=== PATIENT | female | born 1965 | race Hispanic/Latino ===

== ENCOUNTER 2017-06-17 01:38 | Emergency (ER) | payer MEDICAID ==
[2017-06-17 03:19] LABS: BASOPHILS % (AUTO) 1.2 % (0.0-5.0); EOSINOPHILS % (AUTO) 1.4 % (0.0-8.0); HEMATOCRIT 32.1 % (36-48); LYMPHOCYTES % (AUTO) 30.8 % (21.0-51.0); MEAN CORPUSCULAR HEMOGLOBIN 27.7 pg (27.0-33.0); MEAN CORPUSCULAR HGB CONC 33.4 g/dL (32.0-36.0); MEAN CORPUSCULAR VOLUME 82.9 fL (79-99); MONOCYTES % (AUTO) 7.7 % (3.0-13.0); NEUTROPHILS % (AUTO) 58.9 % (40.0-77.0); PLATELET COUNT (AUTO) 340 K/uL (130-400); RED BLOOD CELL COUNT(AUTO) 3.87 MIL/uL (4.00-5.50); RED CELL DISTRIBUTION WIDTH 13.1 % (11.0-15.5); WHITE BLOOD COUNT (AUTO) 9.3 K/uL (4.8-10.8)
[2017-06-17 03:20] LABS: CREATININE 1.3 mg/dL (0.5-1.5); POTASSIUM 3.9 mmol/L (3.5-5.1)
[2017-06-17 03:25] LABS: ALBUMIN 3.5 g/dL (3.5-5.0); BILIRUBIN,TOTAL 0.2 mg/dL (0.2-1.0); TOTAL PROTEIN, SERUM 7.3 g/dL (6.0-8.3)
[2017-06-17 03:27] LABS: APPEARANCE,URINE Clear (CLEAR); BILIRUBIN,URINE Negative (NEGATIVE); COLOR,URINE Yellow (YELLOW); GLUCOSE, URINE (UA) Negative (NEGATIVE); KETONES,URINE Negative (NEGATIVE); LEUKOCYTE ESTERASE ,URINE Negative (NEGATIVE); NITRATE,URINE Negative (NEGATIVE); OCCULT BLOOD,URINE Negative (NEGATIVE); PH,URINE 5.5 (5.0-8.0); PROTEIN,URINE Negative (NEGATIVE); UROBILINOGEN,URINE 0.2 mg/dL (0.2-1.0)
[2017-06-17] MEDS ORDERED: LIDOCAINE HCL 2% VISCOUS 15 ML UDCUP ONE (05:02)
[2017-06-17] MEDS ORDERED: MAGNESIUM HYDROXIDE 30 ML/UDCUP ONE (05:02)
[2017-06-17] MEDS ORDERED: ONDANSETRON HCL 4 MG/2 ML VIAL ONE (05:03)
[2017-06-17] MEDS ORDERED: METHYLPREDNISOLONE SOD SUCC 125MG/2ML VIAL ONE (05:03)
[2017-06-17] MEDS ORDERED: MORPHINE SULFATE 8 MG/ML VIAL ONE (05:05)
== END 2017-06-17 07:20 | disposition home or self-care (01) ==
LOC: EDH 01:38
DX: M32.9 Systemic lupus erythematosus, unspecified (principal); I10 Essential (primary) hypertension; E11.9 Type 2 diabetes mellitus without complications; M19.90 Unspecified osteoarthritis, unspecified site
CPT/HCPCS: 36415; 80053; 81003; 85025; 96374; 96375; 99284; J2270; J2405; J2930

== ENCOUNTER 2017-06-24 14:11 | Emergency (ER) | payer MEDICAID ==
[2017-06-24 14:34] LABS: APPEARANCE,URINE Clear (CLEAR); BILIRUBIN,URINE Negative (NEGATIVE); COLOR,URINE Yellow (YELLOW); GLUCOSE, URINE (UA) Negative (NEGATIVE); KETONES,URINE Negative (NEGATIVE); LEUKOCYTE ESTERASE ,URINE Negative (NEGATIVE); NITRATE,URINE Negative (NEGATIVE); OCCULT BLOOD,URINE Negative (NEGATIVE); PROTEIN,URINE Negative (NEGATIVE); UROBILINOGEN,URINE 0.2 mg/dL (0.2-1.0)
[2017-06-24] MEDS ORDERED: LIDOCAINE HCL 2% VISCOUS 15 ML UDCUP ONE (14:42)
[2017-06-24] MEDS ORDERED: MAG HYDROX/AL HYDROX/SIMETH ES 30 ML SUSP UDCUP ONE (14:42)
[2017-06-24] MEDS ORDERED: FAMOTIDINE/PF 20 MG/2 ML VIAL IV ONE (14:43)
[2017-06-24] MEDS ORDERED: ONDANSETRON HCL 4 MG/2 ML VIAL ONE (14:43)
[2017-06-24 14:51] LABS: BASOPHILS % (AUTO) 0.8 % (0.0-5.0); EOSINOPHILS % (AUTO) 1.8 % (0.0-8.0); LYMPHOCYTES % (AUTO) 29.6 % (21.0-51.0); MEAN CORPUSCULAR HEMOGLOBIN 27.5 pg (27.0-33.0); MEAN CORPUSCULAR HGB CONC 33.2 g/dL (32.0-36.0); MEAN CORPUSCULAR VOLUME 82.7 fL (79-99); MONOCYTES % (AUTO) 6.4 % (3.0-13.0); NEUTROPHILS % (AUTO) 61.4 % (40.0-77.0); PLATELET COUNT (AUTO) 433 K/uL (130-400); RED CELL DISTRIBUTION WIDTH 13.1 % (11.0-15.5); WHITE BLOOD COUNT (AUTO) 10.8 K/uL (4.8-10.8)
[2017-06-24 15:05] LABS: CREATININE 1.1 mg/dL (0.5-1.5); POTASSIUM 3.9 mmol/L (3.5-5.1)
[2017-06-24 15:18] LABS: ALBUMIN 3.9 g/dL (3.5-5.0); BILIRUBIN,TOTAL 0.2 mg/dL (0.2-1.0); CREATINE KINASE MB 2.6 ng/mL (0.5-3.6); TOTAL PROTEIN, SERUM 8.4 g/dL (6.0-8.3)
[2017-06-24] MEDS ORDERED: MORPHINE SULFATE 4 MG/1ML SYG ONE (15:42)
[2017-06-24] MEDS ORDERED: MAGNESIUM CITRATE 296 ML SOLUTION ONE (17:14)
== END 2017-06-24 17:22 | disposition home or self-care (01) ==
LOC: EDH 14:11
DX: R10.12 Left upper quadrant pain (principal); K59.00 Constipation, unspecified; E11.9 Type 2 diabetes mellitus without complications; I10 Essential (primary) hypertension; M19.90 Unspecified osteoarthritis, unspecified site; M79.7 Fibromyalgia; M32.9 Systemic lupus erythematosus, unspecified; Z90.49 Acquired absence of other specified parts of digestive tract; Z90.710 Acquired absence of both cervix and uterus; Z98.890 Other specified postprocedural states
CPT/HCPCS: 36415; 74176; 80053; 81003; 82150; 82553; 83690; 84484; 85025; 93005; 96374; 96375; 99285; J2270; J2405; J3490

== ENCOUNTER 2018-04-16 12:21 | Emergency (ER) | payer MEDICAID ==
[2018-04-16 12:50] LABS: APPEARANCE,URINE Clear (CLEAR); BILIRUBIN,URINE Negative (NEGATIVE); COLOR,URINE Yellow (YELLOW); GLUCOSE, URINE (UA) Negative (NEGATIVE); KETONES,URINE Trace mg/dL (NEGATIVE); LEUKOCYTE ESTERASE ,URINE Small (NEGATIVE); NITRATE,URINE Negative (NEGATIVE); OCCULT BLOOD,URINE Moderate (NEGATIVE); PH,URINE 5.5 (5.0-8.0); PROTEIN,URINE Negative (NEGATIVE); UROBILINOGEN,URINE 0.2 mg/dL (0.2-1.0)
[2018-04-16 13:05] LABS: BACTERIA,URINE Rare /HPF (None Seen); SQUAMOUS EPITHELIAL CELL,UR Rare /HPF (0-2); WBC,URINE 0-1 /HPF (0-1)
[2018-04-16] MEDS ORDERED: ONDANSETRON HCL 4 MG/2 ML VIAL ONE (14:28)
[2018-04-16 14:40] LABS: BASOPHILS % (AUTO) 0.7 % (0.0-5.0); EOSINOPHILS % (AUTO) 1.6 % (0.0-8.0); HEMATOCRIT 31.2 % (36-48); LYMPHOCYTES % (AUTO) 29.4 % (21.0-51.0); MEAN CORPUSCULAR HEMOGLOBIN 28.2 pg (27.0-33.0); MEAN CORPUSCULAR HGB CONC 32.9 g/dL (32.0-36.0); MEAN CORPUSCULAR VOLUME 85.7 fL (79-99); NEUTROPHILS % (AUTO) 61.3 % (40.0-77.0); PLATELET COUNT (AUTO) 405 K/uL (130-400); RED BLOOD CELL COUNT(AUTO) 3.64 MIL/uL (4.00-5.50); RED CELL DISTRIBUTION WIDTH 13.3 % (11.0-15.5); WHITE BLOOD COUNT (AUTO) 8.1 K/uL (4.8-10.8)
[2018-04-16] MEDS ORDERED: MORPHINE SULFATE 4 MG/1ML SYG ONE (14:49)
[2018-04-16 14:56] LABS: CREATININE 1.3 mg/dL (0.5-1.5); POTASSIUM 4.4 mmol/L (3.5-5.1)
[2018-04-16 15:01] LABS: ALBUMIN 3.6 g/dL (3.5-5.0); BILIRUBIN,DIRECT 0.1 mg/dL (0.0-0.3); BILIRUBIN,TOTAL 0.2 mg/dL (0.2-1.0); TOTAL PROTEIN, SERUM 7.7 g/dL (6.0-8.3)
[2018-04-16] MEDS ORDERED: METHYLPREDNISOLONE SOD SUCC 125MG/2ML VIAL ONE (15:15)
== END 2018-04-16 15:55 | disposition home or self-care (01) ==
LOC: EDH 12:21
DX: M32.9 Systemic lupus erythematosus, unspecified (principal); B34.9 Viral infection, unspecified; I10 Essential (primary) hypertension; E11.9 Type 2 diabetes mellitus without complications; Z90.49 Acquired absence of other specified parts of digestive tract; Z90.710 Acquired absence of both cervix and uterus
CPT/HCPCS: 36415; 80048; 80076; 81001; 85025; 87804 ×2; 96374; 96375; 99283; J2270; J2405; J2930

== ENCOUNTER 2018-08-31 00:27 | Emergency (ER) | payer MEDICAID ==
[2018-08-31 00:52] LABS: APPEARANCE,URINE Clear (CLEAR); BILIRUBIN,URINE Negative (NEGATIVE); COLOR,URINE Yellow (YELLOW); GLUCOSE, URINE (UA) Negative (NEGATIVE); KETONES,URINE Negative (NEGATIVE); LEUKOCYTE ESTERASE ,URINE Negative (NEGATIVE); NITRATE,URINE Negative (NEGATIVE); OCCULT BLOOD,URINE Negative (NEGATIVE); PH,URINE 5.5 (5.0-8.0); PROTEIN,URINE Negative (NEGATIVE); UROBILINOGEN,URINE 0.2 mg/dL (0.2-1.0)
[2018-08-31 01:10] LABS: BASOPHILS % (AUTO) 0.8 % (0.0-5.0); EOSINOPHILS % (AUTO) 1.7 % (0.0-8.0); HEMATOCRIT 34.1 % (36-48); LYMPHOCYTES % (AUTO) 28.4 % (21.0-51.0); MEAN CORPUSCULAR HEMOGLOBIN 27.4 pg (27.0-33.0); MEAN CORPUSCULAR HGB CONC 32.9 g/dL (32.0-36.0); MEAN CORPUSCULAR VOLUME 83.2 fL (79-99); MONOCYTES % (AUTO) 7.9 % (3.0-13.0); NEUTROPHILS % (AUTO) 61.2 % (40.0-77.0); PLATELET COUNT (AUTO) 379 K/uL (130-400); RED CELL DISTRIBUTION WIDTH 13.6 % (11.0-15.5); WHITE BLOOD COUNT (AUTO) 9.6 K/uL (4.8-10.8)
[2018-08-31 01:24] LABS: CREATININE 1.1 mg/dL (0.5-1.5); POTASSIUM 4.8 mmol/L (3.5-5.1)
[2018-08-31] MEDS ORDERED: LIDOCAINE HCL 2% VISCOUS 15 ML UDCUP ONE (01:26)
[2018-08-31] MEDS ORDERED: ONDANSETRON HCL 4 MG/2 ML VIAL ONE (01:26)
[2018-08-31] MEDS ORDERED: MAGNESIUM HYDROXIDE 30 ML/UDCUP ONE (01:26)
[2018-08-31 01:28] LABS: ALBUMIN 3.6 g/dL (3.5-5.0); BILIRUBIN,TOTAL 0.3 mg/dL (0.2-1.0); TOTAL PROTEIN, SERUM 7.7 g/dL (6.0-8.3)
[2018-08-31] MEDS ORDERED: MORPHINE SULFATE 2 MG/ML 1ML SYG ONE (02:24)
[2018-08-31 02:57] LABS: OCCULT BLOOD STOOL SINGLE ONLY NEGATIVE (NEGATIVE)
[2018-08-31] MEDS ORDERED: SUCRALFATE 1 GM TABLET ONE (04:31)
[2018-08-31] MEDS ORDERED: FAMOTIDINE/PF 20 MG/2 ML VIAL IV ONE (04:31)
[2018-08-31] MEDS ORDERED: MORPHINE SULFATE 4 MG/1ML SYG ONE (05:25)
== END 2018-08-31 07:14 | disposition home or self-care (01) ==
LOC: EDH 00:27
DX: A09 Infectious gastroenteritis and colitis, unspecified (principal); E11.9 Type 2 diabetes mellitus without complications; I10 Essential (primary) hypertension; L93.0 Discoid lupus erythematosus; Z90.49 Acquired absence of other specified parts of digestive tract; Z90.710 Acquired absence of both cervix and uterus
CPT/HCPCS: 36415; 80053; 81003; 82270; 83630; 83690 ×2; 84484; 85025; 86677; 87046; 87324; 87804 ×2; 93005; 96361; 96372; 96374; 96375; 96376; 99285; J2270; J2405; J3490

== ENCOUNTER 2019-05-17 10:23 | Emergency (ER) | payer MEDICAID ==
[~2019-05-17 10:23] MED LIST: AMIT25TA9 PO; DULO20CA18 PO; HYDR-4060 PO; LORA10TA7 PO; LOSA1TAB54 PO; METF-446 PO; PREG100C PO; ZOLP10TA6 PO
[2019-05-17 10:55] LABS: BASOPHILS % (AUTO) 0.6 % (0.0-5.0); EOSINOPHILS % (AUTO) 0.7 % (0.0-8.0); LYMPHOCYTES % (AUTO) 29.7 % (21.0-51.0); MEAN CORPUSCULAR HEMOGLOBIN 27.1 pg (27.0-33.0); MEAN CORPUSCULAR HGB CONC 31.6 g/dL (32.0-36.0); MEAN CORPUSCULAR VOLUME 85.8 fL (79-99); MONOCYTES % (AUTO) 6.7 % (3.0-13.0); NEUTROPHILS % (AUTO) 61.4 % (40.0-77.0); PLATELET COUNT (AUTO) 381 K/uL (130-400); RED BLOOD CELL COUNT(AUTO) 3.73 MIL/uL (4.00-5.50); RED CELL DISTRIBUTION WIDTH 14.1 % (11.0-15.5); WHITE BLOOD COUNT (AUTO) 9.1 K/uL (4.8-10.8)
[2019-05-17 11:02] LABS: CREATININE 1.2 mg/dL (0.5-1.5); POTASSIUM 3.8 mmol/L (3.5-5.1)
[2019-05-17 11:08] LABS: ALBUMIN 3.3 g/dL (3.5-5.0); BILIRUBIN,TOTAL 0.1 mg/dL (0.2-1.0); TOTAL PROTEIN, SERUM 7.5 g/dL (6.0-8.3)
[2019-05-17] MEDS ORDERED: DEXAMETHASONE SOD PHOSPHATE 10MG/ML 1ML VIAL ONE (11:47)
[2019-05-17] MEDS ORDERED: ONDANSETRON HCL 4 MG/2 ML VIAL ONE (11:47)
[2019-05-17] MEDS ORDERED: MORPHINE SULFATE 4 MG/1ML SYG ONE (11:48)
[2019-05-17 12:02] LABS: INR 0.88 (0.85-1.15); PARTIAL THROMBOPLASTIN TIME 24.5 SEC (26.3-35.5); PROTHROMBIN TIME 9.3 SEC (9.6-11.6)
[2019-05-17] MEDS ORDERED: IPRATROPIUM/ALBUTEROL SULFATE 3 ML SOLUTION IH ONE (12:12)
== END 2019-05-17 13:38 | disposition home or self-care (01) ==
LOC: EDH 10:23
DX: R05 Cough (principal); R07.89 Other chest pain; E11.9 Type 2 diabetes mellitus without complications; M19.90 Unspecified osteoarthritis, unspecified site; I10 Essential (primary) hypertension; M32.9 Systemic lupus erythematosus, unspecified
CPT/HCPCS: 36415; 71045; 80053; 82550; 84484; 85025; 85610; 85730; 87804 ×2; 93005; 94640; 96374; 96375; 99285; J1100; J2270; J2405

== ENCOUNTER 2022-05-03 15:57 | Inpatient (IN) | payer MEDICAID ==
[~2022-05-03] VITALS: Ht 154.9 cm; Wt 99.5 kg
[2022-05-03 17:20] VITALS: BP 136/84
[2022-05-03] MEDS ORDERED: 0.9%NACL 1000ML 1,000 ML IV SCH (18:00)
[2022-05-03] MEDS ORDERED: SOLU-MEDROL 125MG VIAL IVP SCH (18:00)
[2022-05-03 18:12] LABS: BASOPHILS % (AUTO) 0.6 % (0.0-5.0); HEMATOCRIT 36.2 % (36-48); LYMPHOCYTES % (AUTO) 27.5 % (21.0-51.0); MEAN CORPUSCULAR HEMOGLOBIN 27.2 pg (27.0-33.0); MEAN CORPUSCULAR HGB CONC 31.5 g/dL (32.0-36.0); MEAN CORPUSCULAR VOLUME 86.4 fL (79-99); MONOCYTES % (AUTO) 9.4 % (3.0-13.0); NEUTROPHILS % (AUTO) 58.9 % (40.0-77.0); PLATELET COUNT (AUTO) 270 K/uL (130-400); RED BLOOD CELL COUNT(AUTO) 4.19 MIL/uL (4.00-5.50); RED CELL DISTRIBUTION WIDTH 13.2 % (11.0-15.5); WHITE BLOOD COUNT (AUTO) 6.4 K/uL (4.8-10.8)
[2022-05-03 18:25] LABS: INR 0.93 (0.85-1.15); PROTHROMBIN TIME 9.6 SEC (9.6-11.6)
[2022-05-03 18:26] LABS: PARTIAL THROMBOPLASTIN TIME 26.1 SEC (26.3-35.5)
[2022-05-03 18:29] LABS: ALBUMIN 3.2 g/dL (3.5-5.0); GLOMERULAR FILTR. RATE CALC 49 mL/min (>60); GLUCOSE,RANDOM 100 mg/dL (70-105); POTASSIUM 3.6 mmol/L (3.5-5.1); TOTAL PROTEIN, SERUM 7.2 g/dL (6.0-8.3); UREA NITROGEN, BLOOD 24 mg/dL (7-18)
[2022-05-03 18:43] LABS: ALANINE AMINOTRANSFERASE 29 U/L (12-78); ASPARTATE AMINOTRANSFERASE 19 U/L (10-37); CARBON DIOXIDE 27 mmol/L (21-32); CHLORIDE 99 mmol/L (101-111); SODIUM SERUM 135 mmol/L (136-145)
[2022-05-03 18:44] LABS: CREATININE 1.2 mg/dL (0.5-1.5)
[2022-05-03] MEDS: SOLU-MEDROL 125MG VIAL IVP SCH (18:45)
[2022-05-03] MEDS: 0.9%NACL 1000ML 1,000 ML IV SCH (18:45)
[2022-05-03] MEDS: MORPHINE 2 MG SYG IVP PRN ×2 (19:14→22:56)
[2022-05-03 20:26] VITALS: BP 100/62
[2022-05-03 23:32] VITALS: BP 111/52
[2022-05-04] MEDS: SOLU-MEDROL 125MG VIAL IVP SCH ×5 (00:33→23:16)
[2022-05-04] MEDS: MORPHINE 2 MG SYG IVP PRN ×3 (03:03→12:54)
[2022-05-04 03:31] VITALS: BP 118/64
[2022-05-04] MEDS: 0.9%NACL 1000ML 1,000 ML IV SCH ×3 (04:00→23:17)
[2022-05-04 08:00] VITALS: BP 112/59
[2022-05-04] MEDS ORDERED: PANTOPRAZOLE 40 MG/VIAL IVP SCH (09:00)
[2022-05-04] MEDS ORDERED: PANTOPRAZOLE 40 MG TAB DR PO SCH (09:00)
[2022-05-04] MEDS ORDERED: DULA1.5P SQ (10:12)
[2022-05-04] MEDS ORDERED: FURO20TA4 PO (10:12)
[2022-05-04] MEDS ORDERED: MONT-39 (10:12)
[2022-05-04] MEDS ORDERED: AMIT50TA3 PO (10:12)
[2022-05-04] MEDS ORDERED: FENT1PAT61 TP (10:12)
[2022-05-04] MEDS ORDERED: PREG150C46 PO (10:12)
[2022-05-04] MEDS ORDERED: FLUT16H EN (10:12)
[2022-05-04] MEDS ORDERED: LINA145C PO (10:12)
[2022-05-04] MEDS ORDERED: EMPA25TA PO (10:12)
[2022-05-04] MEDS ORDERED: OLME40TA18 PO (10:12)
[2022-05-04 12:00] VITALS: BP 109/53
[2022-05-04] MEDS ORDERED: FENTANYL 50 MCG/HR PATCH TD SCH (12:30)
[2022-05-04] MEDS ORDERED: LOSARTAN 100 MG TABLET PO SCH (12:30)
[2022-05-04] MEDS ORDERED: FUROSEMIDE 20 MG TABLET PO SCH (12:30)
[2022-05-04] MEDS ORDERED: EMPAGLIFLOZIN 25MG TABLET PO SCH (12:30)
[2022-05-04] MEDS: PREGABALIN 75 MG CAPSULE PO SCH ×2 (14:48→21:12)
[2022-05-04] MEDS: HYDROMORPHONE 1 MG INJ IVP PRN ×3 (14:48→23:16)
[2022-05-04 16:00] VITALS: BP 114/57
[2022-05-04 20:34] VITALS: BP 125/57
[2022-05-04] MEDS ORDERED: AMITRIPTYLINE 25 MG TABLET PO SCH (21:00)
[2022-05-04] MEDS ORDERED: MONTELUKAST SODIUM 10 MG TAB PO SCH (21:00)
[2022-05-04] MEDS ORDERED: ZOLPIDEM TARTRATE 5 MG TAB PO SCH (21:00)
[2022-05-04] MEDS: INSULIN HUMULIN R 100 UNIT/ML 3ML SQ SCH (21:15)
[2022-05-05 00:02] VITALS: BP 121/53
[2022-05-05] MEDS: HYDROMORPHONE 1 MG INJ IVP PRN ×3 (03:42→13:41)
[2022-05-05 04:44] VITALS: BP 142/59
[2022-05-05] MEDS: SOLU-MEDROL 125MG VIAL IVP SCH ×2 (05:13→11:52)
[2022-05-05] MEDS: INSULIN HUMULIN R 100 UNIT/ML 3ML SQ SCH ×2 (06:13→11:59)
[2022-05-05 07:30] VITALS: BP 119/67
[2022-05-05] MEDS: PREGABALIN 75 MG CAPSULE PO SCH (08:00)
[2022-05-05] MEDS ORDERED: PANTOPRAZOLE 40 MG TAB DR PO SCH (09:00)
[2022-05-05] MEDS ORDERED: LINZESS 145 MCG PO SCH (09:00)
[2022-05-05] MEDS ORDERED: FLUTICASONE PROPIONATE 50MCG/SPRAY 16 GM BOTTLE EN SCH (09:00)
[2022-05-05 11:30] VITALS: BP 136/72
[2022-05-05] MEDS ORDERED: KETOROLAC 30MG VIAL (30MG/ML) IVP PRN (12:00)
[2022-05-11] MEDS ORDERED: **HM**TRULICITY 1.5MG SQ SCH (09:00)
== END 2022-05-05 14:36 | disposition home or self-care (01) | DRG 346 ==
LOC: EDH 15:57 → 3AH 15:58 → UNDOADMIN 17:03 → 3AH 17:09
PROVIDERS: ADMIT Internal Medicine Hematology & Oncology; ATTEND Internal Medicine Hematology & Oncology
DX: M32.9 Systemic lupus erythematosus, unspecified (principal); C50.919 Malignant neoplasm of unspecified site of unspecified female breast; Z85.3 Personal history of malignant neoplasm of breast; N18.9 Chronic kidney disease, unspecified
CPT/HCPCS: 36415; 80053; 82948; 85025; 85610; 85730; C9113; G0378; J1170; J1815; J1885; J2930

== ENCOUNTER → 2023-01-12 | Outpatient (CLI) | payer MEDICAID ==
[~2023-01-12] MED LIST changes: -AMIT25TA9 PO; +AMIT50TA3 PO; +DULA1.5P SQ; -DULO20CA18 PO; +EMPA25TA PO; +FENT1PAT61 TP; +FLUT16H EN; +FURO20TA4 PO; -HYDR-4060 PO; +LINA145C PO; -LORA10TA7 PO; -LOSA1TAB54 PO; -METF-446 PO; +MONT-39; +OLME40TA18 PO; -PREG100C PO; +PREG150C46 PO
== END | disposition home or self-care (01) ==
LOC: OIH 11:00
PROVIDERS: ATTEND Family Medicine
DX: M17.12 Unilateral primary osteoarthritis, left knee (principal); R10.84 Generalized abdominal pain; M25.562 Pain in left knee; M47.815 Spondylosis without myelopathy or radiculopathy, thoracolumbar region; Z90.49 Acquired absence of other specified parts of digestive tract
CPT/HCPCS: 73562; 74018

== ENCOUNTER 2023-07-19 18:14 | Emergency (ER) | payer MEDICAID ==
[~2023-07-19] VITALS: Ht 154.9 cm; Wt 96.6 kg
[~2023-07-19 18:14] MED LIST changes: -PREG150C46 PO; +PREG150C47 PO
[2023-07-19 18:15] VITALS: BP 103/63; PULSE 107; RESP 18
== END 2023-07-19 20:10 | disposition left against medical advice (07) ==
LOC: EDH 18:14
DX: R11.2 Nausea with vomiting, unspecified (principal); R19.7 Diarrhea, unspecified; Z53.21 Procedure and treatment not carried out due to patient leaving prior to being seen by health care provider
CPT/HCPCS: 99281

== ENCOUNTER 2024-11-20 13:05 | Emergency (ER) | payer MEDICAID ==
[~2024-11-20] VITALS: Ht 154.9 cm; Wt 97.1 kg
[~2024-11-20 13:05] MED LIST changes: +AMIT50TA14 PO; -AMIT50TA3 PO
--- NOTE | 2024-11-20 13:13 | ERN ---
ED Note History of Present Illness Stated Complaint: CP Chief Complaint: Chest Pain Time Seen by MD: 13:09 Dictation: PATIENT IS A 59-YEAR-OLD FEMALE COMING IN TODAY WITH SUBSTERNAL CHEST PAIN THAT DOES NOT RADIATE AND HAS BEEN THEY ARE CONSISTENTLY SINCE YESTERDAY AFTERNOON. NO FEVER NO CHILLS NO NAUSEA VOMITING. NO JAW PAIN NO ARM PAIN NO BACK PAIN. STATES SHE HAS A HISTORY OF HYPERTENSION DIABETES AND CHOLESTEROL. STATES SHE HAS NEVER HAD ANY STENTS NO SURGERIES NO YARDAGE CONTROL OPERATOR'S. Allergies: Coded Allergies: No Known Allergies (Unverified Allergy, Unknown, 05/11/16) Home Meds Active Scripts Omeprazole (Omeprazole) 40 Mg Capsule.dr, 1 CAP PO DAILY for 30 Days, #30 CAP 0 Refills Prov:IRINA CALZADA SUPERVISOR [employer] 11/20/24 Sucralfate (Carafate) 1 Gram Tablet, 1 GM PO ACHS for 5 Days, #20 TAB Prov:IRINA CALZADA SUPERVISOR [employer] 11/20/24 Reported Medications Furosemide (Furosemide) 20 Mg Tablet, 1 TAB PO QDP 05/04/22 Pregabalin (Pregabalin) 150 Mg Capsule, 1 CAP PO TID 05/04/22 Montelukast Sodium (Montelukast Sodium) 10 Mg Tablet, 1 TAB HS 05/04/22 Linaclotide (Linzess) 145 Mcg Capsule, 1 CAP PO DAILY 05/04/22 Fentanyl (Fentanyl) 1 Each Patch.td72, 50 PATCH TP Q3D 05/04/22 Fluticasone Propionate (Flonase Nasal [place]) 50 Mcg/[place], 1 SPRY EN DAILY 05/04/22 Olmesartan Medoxomil (Olmesartan Medoxomil) 40 Mg Tablet, 1 TAB PO QDP 05/04/22 Dulaglutide (Trulicity) 1.5 Mg/0.5 Ml Pen.injctr, 1.5 MG SQ QWEEK 05/04/22 Amitriptyline HCl (Amitriptyline HCl) 50 Mg Tablet, 1 TAB PO HS 05/04/22 Empagliflozin (Jardiance) 25 Mg Tablet, 1 TAB PO QDP 05/04/22 Zolpidem Tartrate (Zolpidem Tartrate) 10 Mg Tablet, 10 MG PO HS, TAB 09/15/18 Past Medical History Past Medical History: Diabetes-Type II, Fibromyalgia, High Cholesterol, Hypertension, Other Additional Past Medical Hx: ra. ckd Surgical History: Other Surgical History Other: back sx, left kidney History: Not Applicable RN Note Reviewed/Agreed w/PFSH: Yes Review of System Dictation CONSTITUTIONAL: NEGATIVE EXCEPT FOR HPI HEAD/FACE: NEGATIVE EXCEPT FOR HPI EENT: NEGATIVE EXCEPT FOR HPI RESPIRATORY: NEGATIVE EXCEPT FOR HPI SUBSTERNAL CHEST PAIN GASTROINTESTINAL/ABDOMINAL: NEGATIVE EXCEPT FOR HPI GENITOURINARY: NEGATIVE EXCEPT FOR HPI MUSCULOSKELETAL: NEGATIVE EXCEPT FOR HPI INTEGUMENTARY: NEGATIVE EXCEPT FOR HPI NEUROLOGICAL/PSYCH: NEGATIVE EXCEPT FOR HPI HEMATOLOGIC/LYMPHATIC: NEGATIVE EXCEPT FOR HPI ALL SYSTEMS NEGATIVE, EXCEPT NOTED ABOVE. 13 POINT REVIEW OF SYSTEMS ASSESSED AND ALL NEGATIVE EXCEPT FOR ABOVE. Initial Vital Sign VS Vital Signs Date Time Temp Pulse Resp B/P (MAP) Pulse Ox O2 Delivery O2 Flow Rate FiO2 11/20/24 13:07 97.9 84 18 118/78 99 Room Air 11/20/24 13:12 0 21 Physical Exam Dictation VITAL SIGNS REVIEWED GENERAL APPEARANCE: ALERT, ORIENTED X 3, MILD ACUTE JEY DISTRESS, WELL DEVELOPED, NOURISHED. MORBIDLY OBESE HEAD AND FACE: NON-TRAUMATIC. EYES: PERRL, PINK CONJUNCTIVAS, EYELID NO TRAUMA, ANTERIOR CHAMBER WITH ARCUS SENILIS. EARS: PINNAS INTACT AND NO SIGNS OF TRAUMA OR ERYTHEMA EAR CANALS CLEAR AND NO DISCHARGE TM NO ERYTHEMA NOSE: NO DISCHARGE, NO BLEEDING. OROPHARYNX: MOUTH NORMAL, TONGUE PINK, PHARYNX CLEAR,NO ERYTHEMA, TONSILS NO EXUDATES, NO ABSCESSES NOTED, MUCOUS MEMBRANE MOIST NECK: SUPPLE, NON-TENDER, NO THYROMEGALY, NO MASSES, NO JVD, NO BRUITS BREAST:DEFERRED CHEST:NO TENDERNESS, NO CREPITUS, NO PARADOXICAL MOVEMENT, NO RETRACTIONS LUNGS:CLEAR, WELL-VENTILATED, SYMMETRIC, NO RALES, NO WHEEZING, NO RHONCHI, NO STRIDOR, GOOD BREATH SOUNDS BILATERALLY HEART: REGULAR RATE, REGULAR RHYTHM, NO MURMUR, NO GALLOPS VASCULAR: NO PERIPHERAL EDEMA, ABDOMEN: SOFT, POSITIVE BOWEL SOUNDS, NONDISTENDED, NO GUARDING, NONTENDER, NO REBOUND, NO MASSES NO HEPATOMEGALY, NO SPLENOMEGALY, NO ONTIVEROS'S SIGN, NO HERNIAS. RECTAL: DEFERRED GENITAL: DEFERRED NEUROLOGICAL: NORMAL SPEECH, MOTOR FUNCTION INTACT, SENSORY FUNCTION INTACT MUSCULOSKELETAL: NECK NONTENDER, FULL RANGE OF MOTION, BACK NONTENDER, FULL RANGE OF MOTION, EXTREMITIES: NONTENDER, FULL RANGE OF MOTION SKIN: COLOR PINK, DRY, NO TURGOR, NO RASH, NO LACERATIONS, NO ABRASIONS, NO CONTUSIONS. LYMPHATIC: DEFERRED Results (Laboratory/Radiology) Laboratory/Radiology Laboratory Tests Test 11/20/24 13:37 11/20/24 15:25 White Blood Count 5.0 K/uL (4.8-10.8) Red Blood Count 4.24 MIL/uL (4.00-5.50) Hemoglobin 11.5 g/dL (12.0-16.0) L Hematocrit 36.7 % (36-48) Mean Corpuscular Volume 86.6 fL (79-99) Mean Corpuscular Hemoglobin 27.1 pg (27.0-33.0) Mean Corpuscular Hemoglobin Concent 31.3 g/dL (32.0-36.0) L Red Cell Distribution Width 15.4 % (11.0-15.5) Platelet Count 315 K/uL (130-400) Mean Platelet Volume 9.6 fL (7.5-10.5) Immature Granulocyte % (Auto) 0.6 % (0-1) Neutrophils (%) (Auto) 53.2 % (40.0-77.0) Lymphocytes (%) (Auto) 35.6 % (21.0-51.0) Monocytes (%) (Auto) 7.6 % (3.0-13.0) Eosinophils (%) (Auto) 2.4 % (0.0-8.0) Basophils (%) (Auto) 0.6 % (0.0-5.0) Neutrophils # (Auto) 2.6 K/uL (1.8-7.7) Lymphocytes # (Auto) 1.8 K/uL (1.0-4.8) Monocytes # (Auto) 0.4 K/uL (0.1-1.0) Eosinophils # (Auto) 0.12 K/uL (0.00-0.70) Basophils # (Auto) 0.03 K/uL (0.00-0.20) Absolute Immature Granulocyte (auto 0.03 K/uL (0-1) Nucleated Red Blood Cells 0.0 % (0.0-0.19) Sodium Level 141 mmol/L (136-145) Potassium Level 4.2 mmol/L (3.5-5.1) Chloride Level 107 mmol/L (101-111) Carbon Dioxide Level 27 mmol/L (21-32) Blood Urea Nitrogen 22 mg/dL (7-18) H Creatinine 1.1 mg/dL (0.5-1.0) H Glomerular Filtration Rate Calc 57 mL/min (>90) Random Glucose 97 mg/dL (70-105) Total Calcium 8.7 mg/dL (8.5-10.1) Magnesium Level 1.80 mg/dL (1.80-2.40) Troponin I High Sensitivity 5 ng/L (4-50) 5 ng/L (4-50) B-Type Natriuretic Peptide 19 pg/mL (0-100) Labs Reviewed?: Yes EKG Comment: EKG SINUS RHYTHM/HEART RATE 85/OCCASIONAL PACS/AXIS NORMAL/NO ST SEGMENT CHANGES NO Q-WAVES 1630/EKG SINUS HEART RATE 81 PSYCH/NORHIGH CYST AT TOOTH SIN HIGH SENSITIVITY TROPONIN FIVE HEART SCORE IS THREE ED Course ED Course Orders Procedure Category Date Status Time Cbc With Differential LAB 11/20/24 Complete 13:10 Chest 1vw RAD 11/20/24 Resulted 13:10 12 Lead Ekg Tracing- EKG 11/20/24 Complete Technical 13:10 Magnesium LAB 11/20/24 Complete 13:10 Troponin I High LAB 11/20/24 Complete Sensitivity 13:10 Aspirin 325mg Tab PHA 11/20/24 Complete (Aspirin 325mg Tab) 13:30 Basic Metabolic Panel LAB 11/20/24 Complete 13:10 B-Type Natriuretic LAB 11/20/24 Complete Peptide 13:10 Nitroglycerin 0.4mg PHA 11/20/24 Complete Sl Tab (Nitrostat) 13:30 12 Lead Ekg Tracing- EKG 11/20/24 Complete Technical 14:13 Troponin I High LAB 11/20/24 Complete Sensitivity 14:13 Lidocaine Hcl 2% PHA 11/20/24 Complete Viscous (Lidocaine Hcl 16:00 Mag/Alum/Simeth 30ml PHA 11/20/24 Complete (Maalox Plus 30ml) 16:00 Dicyclomine Hcl PHA 11/20/24 Complete (Bentyl 10mg/5ml 16:00 Current Medications Medications (Trade) Dose Ordered Sig/Bhavana Route PRN Reason Start Time Stop Time Status Last Admin Dose Admin Al Hydroxide/Mg Hydroxide (MAALox PLUS 30ML) 30 ml ONCE ONCE PO 11/20/24 16:00 11/20/24 16:01 DC Aspirin (Aspirin 325mg Tab) 325 mg ONCE ONCE PO 11/20/24 13:30 11/20/24 13:31 DC 11/20/24 14:02 Dicyclomine HCl (Bentyl 10mg/5ml Syrup) 10 mg ONCE ONCE PO 11/20/24 16:00 11/20/24 16:01 DC Lidocaine HCl (Lidocaine HCl 2% Viscous) 10 ml ONCE ONCE PO 11/20/24 16:00 11/20/24 16:01 DC Nitroglycerin (Nitrostat) 0.4 mg AD PRN SL CHEST PAIN 11/20/24 13:30 11/20/24 16:57 DC 11/20/24 14:02 Vital Signs Date Time Temp Pulse Resp B/P (MAP) Pulse Ox O2 Delivery O2 Flow Rate FiO2 11/20/24 16:51 98.1 74 18 99/54 99 Room Air* 0 11/20/24 15:17 98.1 75 20 127/65 99 Room Air* 0 11/20/24 14:00 98.1 78 18 123/51 97 Room Air* 0 11/20/24 13:12 97.9 84 18 118/78 99 Room Air* 0 11/20/24 13:07 97.9 84 18 118/78 99 Room Air 1630/PATIENT STATING NOW HER PAIN IS LOCALIZED TO HER EPIGASTRIUM WAS GIVEN A GI COCKTAIL AND THIS IS RESOLVED. SHE STATES SHE DOES HAVE CHRONIC PAIN DUE TO HER LUPUS AND FIBROMYALGIA HOWEVER SHE HAS LYRICA AND HYDROCODONE AT HOME BY HER DOCTOR IS READY TO GO HOME. ALL QUESTIONS ANSWERED BY HER AND HER FAMILY TO HEART Score Response (Comments) Value EKG: Repolarization changes 1 Age: 45-65yrs (+1) 1 Risk Factors: 3+ risk factors (+2) 2 Initial Troponin: Normal limit (0) 0 Total 4 Medical Decision Making MDM MDM: DIFFERENTIAL DIAGNOSIS: ACS/AMI/ELECTROLYTE IMBALANCE/DEHYDRATION/GASTRITIS RATIONALE: TESTS CONSIDERED AND ORDERED SECONDARY TO SHARED DECISION MAKING INCLUDE: EKG/LABS/RADIOLOGY PREVIOUS OUTSIDE RECORDS REVIEWED: OLD ER VISITS. RISK OF COMPLICATION AND/OR MORBIDITY OR MORTALITY OF PATIENT MANAGEMENT: NONE MEDICATIONS-PER MEDICATION RECONCILIATION NEED FOR HOSPITALIZATION: PATIENT DOES NOT MEET CRITERIA FOR HOSPITALIZATION. NO NEED FOR EMERGENCY MAJOR/MINOR SURGERY: NO THERE ARE NO SOCIAL CONCERNS WITH THIS PATIENT. PRESCRIPTION DRUG MANAGEMENT PRESCRIPTIONS WILL INCLUDE SYMPTOMATIC CARE PATIENT'S PRIOR EXTERNAL MEDICAL RECORDS FROM OTHER ER VISITS WERE REVIEWED BY ME INDICATED. PRIOR TESTING AND RESULTS FROM PREVIOUS VISITS WERE REVIEWED. PRIOR TESTS WERE TAKEN INTO ACCOUNT WITH MEDICAL DECISION MAKING AND RESOURCE UTILIZATION, INDEPENDENT HISTORIAN/HISTORIANS WERE USED TO OBTAIN COMPLETE MEDICAL HISTORY. I INDEPENDENTLY INTERPRETED THE TEST THAT WERE PERFORMED, RESULTS WERE REVIEWED BY ME AND CONSIDERED FINDINGS ON RADIOLOGY IF ORDERED. MEDICAL MANAGEMENT AND EXAMINATION INTERPRETATION DISCUSSIONS WERE HAD BY ME WITH OTHER QUALIFIED HEALTHCARE PROFESSIONALS INDICATED FOR THE PATIENT'S CARE. DX & DISP Disposition: Discharge Departure Impression: Primary Impression: Atypical chest pain Additional Impressions: Acute gastritis, Stage 3 chronic kidney disease Condition: Stable Scripts Omeprazole (Omeprazole) 40 Mg Capsule.dr 1 CAP PO DAILY for 30 Days, #30 CAP 0 Refills Prov: IRINA CALZADA SUPERVISOR [employer] 11/20/24 Sucralfate (Carafate) 1 Gram Tablet 1 GM PO ACHS for 5 Days, #20 TAB Prov: IRINA CALZADA SUPERVISOR [employer]ING 11/20/24 Additional Instructions: FOLLOW-UP WITH PRIMARY CARE PROVIDER IN 1 TO 2 DAYS. TAKE MEDICATIONS DIRECTED HERE IN THE EMERGENCY ROOM. OKAY TO CONTINUE HOME MEDICATIONS UNLESS OTHERWISE DISCUSSED DURING YOUR VISIT IN THE EMERGENCY ROOM TODAY. RETURN TO YOUR NEAREST EMERGENCY ROOM IF SYMPTOMS WORSEN OR IF THERE IS NO IMPROVEMENT. CALL 911 IF YOU NEED IMMEDIATE ASSISTANCE. TAKE TYLENOL OR MOTRIN RIAR-PRH-[id number] NEEDED AND IF NO CONTRAINDICATIONS ARE PRESENT. INCREASE ORAL HYDRATION. A WOUND CULTURE OR URINE CULTURE WAS ORDERED HERE IN THE EMERGENCY ROOM DEPARTMENT PLEASE FOLLOW-UP WITH PRIMARY CARE PROVIDER AND ADVISE THEM TO GET REPEAT PORTS FROM OUR FACILITY. IF YOU HAD ANY ELISA WRAP/SPLINTS THAT WERE APPLIED HERE, PLEASE DO NOT REMOVE THEM UNTIL YOU SEE YOUR PRIMARY CARE OR SPECIALTY. FOLLOW A BLAND DIET WITH WATER FOR FLUIDS ONLY. TAKE CARAFATE AND OMEPRAZOLE DIRECTED, SEE YOUR PRIMARY CARE DOCTOR FOR FOLLOW UP. CONTINUE HYDROCODONE AND LYRICA FOR YOUR FIBROMYALGIA AND LUPUS PAIN Referrals: SILAS CABRERA MD (PCP) Time of Disposition: 16:34 I have reviewed the case, and I agree with, Diagnosis and Plan IRINA CALZADA NP Nov 20, 2024 13:12 JOE COLES DO Nov 20, 2024 17:58
--- NOTE | 2024-11-20 13:28 | EKG ---
[facility] Test Date: 2024-11-20 Test Time: 13:14:13 Pat Name: RAPHAEL SAMSON Department: [facility] Room: Gender: F Stem Frazer: [id number] : 1965 Requested By: IRINA CALZADA Order Number: [id number] Reading MD: Sung Chavarria Measurements Intervals [place] Rate: 85 P: 11 OK: 130 QRS: 3 QRSD: 100 T: 33 QT: 373 QTc: 446 Interpretive Statements Sinus rhythm Atrial premature complex Compared to ECG 07/02/2019 18:26:26 Atrial premature complex(es) now present Electronically Signed On 11-20-2024 19:01:03 CDT by Sung Chavarria Please click the below link to view image of tracing.
[2024-11-20 13:44] LABS: IMMATURE GRANULOCYTE ABSOLUTE 0.03 K/uL (0-1); NUCLEATED RED BLOOD CELLS 0.0 % (0.0-0.19); PLATELET COUNT (AUTO) 315 K/uL (130-400); RED BLOOD CELL COUNT(AUTO) 4.24 MIL/uL (4.00-5.50); RED CELL DISTRIBUTION WIDTH 15.4 % (11.0-15.5); WHITE BLOOD COUNT (AUTO) 5.0 K/uL (4.8-10.8)
--- NOTE | 2024-11-20 13:50 | NUR ---
PT SITUATED IN RM 18.
[2024-11-20 13:52] LABS: CREATININE 1.1 mg/dL (0.5-1.0); GLOMERULAR FILTR. RATE CALC 57.0 mL/min (>90); GLUCOSE,RANDOM 97.0 mg/dL (70-105); SODIUM SERUM 141.0 mmol/L (136-145); UREA NITROGEN, BLOOD 22.0 mg/dL (7-18)
[2024-11-20] MEDS: NITROGLYCERIN 0.4 MG SL TAB SL PRN (14:02)
[2024-11-20] MEDS: ASPIRIN 325MG TAB PO ONE (14:02)
--- NOTE | 2024-11-20 14:51 | HMCIMG ---
EXAM: CR Chest, 1 View. CLINICAL HISTORY: CHEST PAIN COMPARISON: Radiographs dated May 17, 2019 FINDINGS: Lung bases are clear. There is no pleural effusion or pneumothorax. Heart size and pulmonary vessels are within normal limits. IMPRESSION: No acute cardiopulmonary pathology is evident. /[place]
--- NOTE | 2024-11-20 15:13 | EKG ---
[facility] Test Date: 2024-11-20 Test Time: 14:55:52 Pat Name: RAPHAEL SAMSON Department: [facility] Room: Gender: F Boilermaking Supervisor: [phone] : 1965 Requested By: IRINA CALZADA Order Number: [id number] Reading MD: Sung Chavarria Measurements Intervals [place] Rate: 71 P: 7 AK: 125 QRS: 0 QRSD: 93 T: 20 QT: 378 QTc: 404 Interpretive Statements Sinus rhythm Atrial premature complexes Compared to ECG 11/20/2024 13:14:13 No significant changes Electronically Signed On 11-20-2024 19:01:16 CDT by Sung Chavarria Please click the below link to view image of tracing.
--- NOTE | 2024-11-20 15:42 | NUR ---
IV REMOVED FROM LEFT AC PT AND BOTH STATED IT WAS VERY PAINFUL.
[2024-11-20] MEDS: MAG/ALUM/SIMETH 30 ML UDCUP PO ONE (15:59)
[2024-11-20] MEDS: DICYCLOMINE HCL 10 MG/5 ML ML PO ONE (15:59)
[2024-11-20] MEDS: LIDOCAINE HCL 2% VISCOUS 15 ML UDCUP PO ONE (16:00)
--- NOTE | 2024-11-20 16:10 | NUR ---
PT REFUSED THE GI COCKTAIL SHE IS NAUSEOUS.
--- NOTE | 2024-11-20 16:12 | NUR ---
CRISTAL MEREDITH AT BEDSIDE TO DISCUSS RESULTS AND TREATMENT. Addendum: 11/20/24 at 1654 by MAGALIS SANDRA,IRINA MEREDITH
--- NOTE | 2024-11-20 16:15 | NUR ---
PT DECLINED ANY PO MEDICATIONS,SHE WOULD LIKE TO BE DISCHARGED AND WILL TAKE HER OWN MEDICATIONS WHEN SHE GETS HOME.
[2024-11-20] MEDS ORDERED: OMEP40CA21 PO (16:36)
[2024-11-20] MEDS ORDERED: SUCR1TAB28 PO (16:36)
[2024-11-20 16:51] VITALS: BP 99/54; PULSE 74; RESP 18; TEMP 98.1; O2SAT 99
== END 2024-11-20 16:57 | disposition home or self-care (01) ==
LOC: EDH 13:05
DX: R07.89 Other chest pain (principal); K29.00 Acute gastritis without bleeding; I12.9 Hypertensive chronic kidney disease with stage 1 through stage 4 chronic kidney disease, or unspecified chronic kidney disease; E11.22 Type 2 diabetes mellitus with diabetic chronic kidney disease; N18.30 Chronic kidney disease, stage 3 unspecified; E78.00 Pure hypercholesterolemia, unspecified; M79.7 Fibromyalgia; Z79.899 Other long term (current) drug therapy
CPT/HCPCS: 36415; 71045; 80048; 83735; 83880; 84484; 85025; 93005; 99285